=== PATIENT | male | born 1975 | race Caucasian/White ===

== ENCOUNTER 2019-10-15 20:50 | Emergency (ER) | payer OTHER ==
[~2019-10-15] VITALS: Ht 160 cm; Wt 61.3 kg
[~2019-10-15 20:50] MED LIST: NOCURR
[2019-10-15] MEDS ORDERED: AMIODARONE HCL 50 MG/ML 3 ML VIAL IVP ONE (20:51)
[2019-10-15] MEDS ORDERED: EPINEPHrine 1:10,000 [1 MG/10 ML] SYRINGE IVP ONE (20:51)
[2019-10-15] MEDS ORDERED: NALOXONE HCL 1 MG/ML 2 ML SYG IVP ONE (20:51)
[2019-10-15] MEDS ORDERED: SODIUM BICARBONATE [ADULT] 8.4% 50 MEQ/50 ML SYRINGE IVP ONE (20:51)
[2019-10-15] MEDS ORDERED: LIDOCAINE/PF 2% 5 ML SYRINGE IVP ONE (20:51)
[2019-10-15] MEDS ORDERED: CALCIUM CHLORIDE IV ONE (20:51)
[2019-10-15] MEDS ORDERED: ESMOLOL HCL 10 MG/ML 10 ML VIAL IVP ONE (21:15)
[2019-10-15] MEDS ORDERED: RIFAX550 PO (21:28)
[2019-10-15] MEDS ORDERED: PANT40TA25 PO (21:28)
[2019-10-15] MEDS ORDERED: SPIR50 PO (21:28)
[2019-10-15] MEDS ORDERED: FOLI1 PO (21:28)
[2019-10-15] MEDS ORDERED: ACAM333T7 PO (21:28)
[2019-10-15] MEDS ORDERED: PROP10TA73 PO (21:28)
[2019-10-15 22:08] VITALS: BP 0/0
== END 2019-10-16 02:30 | disposition expired ==
LOC: EMS 20:50
DX: I46.9 Cardiac arrest, cause unspecified (principal); K74.60 Unspecified cirrhosis of liver; F17.210 Nicotine dependence, cigarettes, uncomplicated
CPT/HCPCS: 31500; 82962; 92950; 99291; J0171; J0282; J2310; J3490 ×4